=== PATIENT | male | born 1965 | race Caucasian/White ===

== ENCOUNTER 2016-10-09 08:51 | Inpatient (IN) | payer MEDICARE ==
[~2016-10-09] VITALS: Ht 182.9 cm; Wt 58.4 kg
[~2016-10-09 08:51] MED LIST: BACL-19 PO; BACL20TA PO; BUPR1FIL3 PO; BUTA1CAP30 PO; DIAZ10TA PO; OXYC5TAB3 PO; SULF1TAB24 PO
[2016-10-09] MEDS ORDERED: SODIUM CHLORIDE FLUSH 10ML SYR IVF ONE (09:30)
[2016-10-09] MEDS ORDERED: SODIUM CHLORIDE 0.9% 1,000ML IVBOLUS ONE (09:30)
[2016-10-09 09:58] LABS: HEMOGLOBIN 15.5 g/dL (13.7-18.0)
[2016-10-09 10:36] LABS: ASPARTATE AMINO TRANSFERASE 30 U/L (15-37); BLOOD UREA NITROGEN 20 mg/dL (7-18)
[2016-10-09 10:44] LABS: DIFF TOTAL CELLS COUNTED 100 CELL DIFF
[2016-10-09 10:45] LABS: VERIFY COUNTS? YES
[2016-10-09 10:46] LABS: ANISOCYTOSIS 1+; OVALOCYTES 1+
[2016-10-09] MEDS ORDERED: VANCOMYCIN PER PHARMACY MC PRN ×2 (11:00→12:00)
[2016-10-09] MEDS ORDERED: PIPERACILLIN/TAZO/PMX 3.375GM 50 ML IV ONE (11:00)
[2016-10-09] MEDS ORDERED: SODIUM CHLORIDE 0.9% 1,000 ML IV ONE (11:09)
[2016-10-09] MEDS ORDERED: VANCOMYCIN 1,100 MG in SODIUM CHLORIDE 0.9% 250 ML IV ONE (11:30)
[2016-10-09] MEDS ORDERED: BUTALBITAL PO PRN (11:30)
[2016-10-09] MEDS ORDERED: SODIUM CHLORIDE FLUSH 10ML SYR IVF PRN (11:30)
[2016-10-09] MEDS ORDERED: ASPIRIN PO PRN (11:30)
[2016-10-09] MEDS ORDERED: CAFFEINE PO PRN (11:30)
[2016-10-09] MEDS ORDERED: PIPERACILLIN/TAZO/PMX 3.375GM 50 ML ONE (11:53)
[2016-10-09] MEDS ORDERED: PIPERACILLIN/TAZO/PMX 3.375GM 50 ML IV SCH (12:00)
[2016-10-09] MEDS ORDERED: ACETAMINOPHEN 325 MG TABLET PO PRN (12:00)
[2016-10-09 12:15] VITALS: BP 144/88
[2016-10-09 13:35] LABS: C-REACTIVE PROTEIN, QUANT > 19.00 mg/dL (0.02-0.49)
[2016-10-09] MEDS: OXYcodone IR 5MG TABLET PO PRN ×3 (13:41→21:58)
[2016-10-09] MEDS: NS + 20MEQ KCL 1,000 ML IV SCH ×2 (13:41→18:40)
[2016-10-09] MEDS: ENOXAPARIN 40 MG/0.4 ML SQ SCH (13:41)
[2016-10-09] MEDS ORDERED: BACLOFEN 10 MG TABLET PO SCH (14:00)
[2016-10-09] MEDS: BACLOFEN 10 MG TABLET PO SCH ×3 (14:00→20:59)
[2016-10-09 16:09] LABS: DAU SCREEN DISCLAIMER
[2016-10-09 18:37] VITALS: BP 133/85
[2016-10-09] MEDS: AMPICILLIN/SULBACTAM 3 GM in SODIUM CHLORIDE 0.9% 100 ML IV SCH ×2 (19:30→22:15)
[2016-10-09 20:08] LABS: BLOOD UREA NITROGEN 23 mg/dL (7-18)
[2016-10-09] MEDS ORDERED: DIAZEPAM 5 MG TABLET ONE (20:33)
[2016-10-09] MEDS: DIAZEPAM 10 MG TABLET PO SCH (21:00)
[2016-10-10 01:42] VITALS: BP 109/75
[2016-10-10] MEDS: OXYcodone IR 5MG TABLET PO PRN ×4 (02:18→18:10)
[2016-10-10] MEDS: AMPICILLIN/SULBACTAM 3 GM in SODIUM CHLORIDE 0.9% 100 ML IV SCH ×4 (04:00→23:56)
[2016-10-10] MEDS: BUTALB/APAP/CAFFEINE 50MG/325MG/40MG PO PRN ×2 (04:03→09:31)
[2016-10-10 05:32] LABS: HEMOGLOBIN 12.9 g/dL (13.7-18.0)
[2016-10-10 05:38] LABS: BLOOD UREA NITROGEN 18 mg/dL (7-18)
[2016-10-10 05:43] LABS: ASPARTATE AMINO TRANSFERASE 23 U/L (15-37)
[2016-10-10] MEDS: NS + 20MEQ KCL 1,000 ML IV SCH ×3 (06:06→23:56)
[2016-10-10] MEDS: BACLOFEN 10 MG TABLET PO SCH ×5 (06:12→20:44)
[2016-10-10 06:50] VITALS: BP 94/67
[2016-10-10] MEDS ORDERED: VANCOMYCIN PMX 1GM/200ML 200 ML IV ONE (08:00)
[2016-10-10] MEDS ORDERED: VANCOMYCIN PER PHARMACY MC PRN (08:00)
[2016-10-10] MEDS ORDERED: DIAZEPAM 5 MG TABLET ONE ×2 (08:43→20:33)
[2016-10-10] MEDS: DIAZEPAM 10 MG TABLET PO SCH ×2 (09:00→20:45)
[2016-10-10] MEDS: LORATADINE 10 MG TABLET PO SCH (09:00)
[2016-10-10] MEDS: ENOXAPARIN 40 MG/0.4 ML SQ SCH (11:09)
[2016-10-10] MEDS ORDERED: PHARMACOKINETIC CONSULTATION MC ONE (11:30)
[2016-10-10] MEDS ORDERED: PHARMACOKINETIC MONITORING MC PRN (11:30)
[2016-10-10 12:25] VITALS: BP 102/66
[2016-10-10] MEDS: NICOTINE 21 MG/24 HR PATCH.TD24 TD SCH (13:39)
[2016-10-10] MEDS: METHADONE 5 MG TABLET PO SCH ×3 (13:40→21:00)
[2016-10-10 18:30] VITALS: BP 109/74
[2016-10-10] MEDS: VANCOMYCIN PMX 1GM/200ML 200 ML IV SCH (20:48)
[2016-10-11] MEDS: OXYcodone IR 5MG TABLET PO PRN ×4 (00:42→17:02)
[2016-10-11 01:06] VITALS: BP 94/60
[2016-10-11] MEDS: BUTALB/APAP/CAFFEINE 50MG/325MG/40MG PO PRN ×2 (02:42→17:02)
[2016-10-11 05:16] LABS: HEMOGLOBIN 11.7 g/dL (13.7-18.0)
[2016-10-11 05:22] LABS: BLOOD UREA NITROGEN 16 mg/dL (7-18)
[2016-10-11] MEDS: BACLOFEN 10 MG TABLET PO SCH ×5 (06:15→20:24)
[2016-10-11] MEDS: AMPICILLIN/SULBACTAM 3 GM in SODIUM CHLORIDE 0.9% 100 ML IV SCH ×4 (06:15→23:55)
[2016-10-11 07:25] VITALS: BP 100/71
[2016-10-11] MEDS: NS + 20MEQ KCL 1,000 ML IV SCH ×2 (09:20→20:22)
[2016-10-11] MEDS: VANCOMYCIN PMX 1GM/200ML 200 ML IV SCH ×2 (09:20→20:23)
[2016-10-11] MEDS: LORATADINE 10 MG TABLET PO SCH (09:20)
[2016-10-11] MEDS: METHADONE 5 MG TABLET PO SCH ×3 (09:21→20:26)
[2016-10-11] MEDS: DIAZEPAM 10 MG TABLET PO SCH ×2 (09:21→20:25)
[2016-10-11] MEDS: NICOTINE 21 MG/24 HR PATCH.TD24 TD SCH (09:22)
[2016-10-11] MEDS: ENOXAPARIN 40 MG/0.4 ML SQ SCH (12:44)
[2016-10-11 14:03] VITALS: BP 116/78
[2016-10-11 20:08] VITALS: BP 145/86
[2016-10-12 01:12] VITALS: BP 117/73
[2016-10-12] MEDS: OXYcodone IR 5MG TABLET PO PRN ×4 (01:51→18:32)
[2016-10-12] MEDS: BUTALB/APAP/CAFFEINE 50MG/325MG/40MG PO PRN ×2 (03:18→10:43)
[2016-10-12] MEDS: NS + 20MEQ KCL 1,000 ML IV SCH ×3 (06:00→20:06)
[2016-10-12] MEDS: AMPICILLIN/SULBACTAM 3 GM in SODIUM CHLORIDE 0.9% 100 ML IV SCH ×3 (06:00→18:00)
[2016-10-12] MEDS: BACLOFEN 10 MG TABLET PO SCH ×4 (06:01→18:00)
[2016-10-12 08:03] VITALS: BP 132/86
[2016-10-12] MEDS ORDERED: DIAZEPAM 5 MG TABLET ONE (08:27)
[2016-10-12] MEDS: METHADONE 5 MG TABLET PO SCH ×3 (08:38→21:14)
[2016-10-12] MEDS: NICOTINE 21 MG/24 HR PATCH.TD24 TD SCH (08:38)
[2016-10-12] MEDS: LORATADINE 10 MG TABLET PO SCH (08:38)
[2016-10-12] MEDS: DIAZEPAM 10 MG TABLET PO SCH ×2 (08:39→21:14)
[2016-10-12] MEDS: ENOXAPARIN 40 MG/0.4 ML SQ SCH (12:00)
[2016-10-12 14:00] VITALS: BP 139/86
[2016-10-12] MEDS ORDERED: VANCOMYCIN 1,200 MG in SODIUM CHLORIDE 0.9% 250 ML IV SCH (17:00)
[2016-10-12 18:58] VITALS: BP 131/84
[2016-10-13] MEDS: AMPICILLIN/SULBACTAM 3 GM in SODIUM CHLORIDE 0.9% 100 ML IV SCH ×2 (00:49→06:41)
[2016-10-13 02:26] VITALS: BP 138/90
[2016-10-13] MEDS: OXYcodone IR 5MG TABLET PO PRN ×5 (02:47→21:02)
[2016-10-13] MEDS: NS + 20MEQ KCL 1,000 ML IV SCH ×4 (04:16→22:25)
[2016-10-13 05:18] LABS: HEMOGLOBIN 12.6 g/dL (13.7-18.0)
[2016-10-13 05:25] LABS: BLOOD UREA NITROGEN 7 mg/dL (7-18)
[2016-10-13] MEDS: BACLOFEN 10 MG TABLET PO SCH ×4 (06:41→20:47)
[2016-10-13] MEDS: DIAZEPAM 10 MG TABLET PO SCH ×2 (09:00→20:47)
[2016-10-13 09:02] VITALS: BP 153/93
[2016-10-13] MEDS ORDERED: DIAZEPAM 5 MG TABLET ONE ×2 (09:17→20:25)
[2016-10-13] MEDS: METHADONE 5 MG TABLET PO SCH ×3 (09:22→20:47)
[2016-10-13] MEDS: LORATADINE 10 MG TABLET PO SCH (09:22)
[2016-10-13] MEDS: NICOTINE 21 MG/24 HR PATCH.TD24 TD SCH (09:23)
[2016-10-13] MEDS: CEFTAROLINE 600 MG in SODIUM CHLORIDE 0.9% 100 ML IV SCH ×2 (09:52→20:53)
[2016-10-13] MEDS: ENOXAPARIN 40 MG/0.4 ML SQ SCH (11:23)
[2016-10-13 14:42] VITALS: BP 131/83
[2016-10-13 20:07] VITALS: BP 150/98
[2016-10-13] MEDS: BUTALB/APAP/CAFFEINE 50MG/325MG/40MG PO PRN (22:41)
[2016-10-14 01:18] VITALS: BP 133/87
[2016-10-14] MEDS: OXYcodone IR 5MG TABLET PO PRN ×6 (01:57→22:53)
[2016-10-14] MEDS: BUTALB/APAP/CAFFEINE 50MG/325MG/40MG PO PRN ×5 (03:05→22:53)
[2016-10-14] MEDS: NS + 20MEQ KCL 1,000 ML IV SCH ×3 (05:02→23:20)
[2016-10-14 05:26] LABS: HEMOGLOBIN 12.8 g/dL (13.7-18.0)
[2016-10-14 05:36] LABS: BLOOD UREA NITROGEN 6 mg/dL (7-18)
[2016-10-14 05:40] LABS: ASPARTATE AMINO TRANSFERASE 30 U/L (15-37)
[2016-10-14] MEDS: BACLOFEN 10 MG TABLET PO SCH ×4 (06:05→21:09)
[2016-10-14] MEDS ORDERED: DIAZEPAM 5 MG TABLET ONE ×3 (07:59→21:01)
[2016-10-14 08:05] VITALS: BP 150/90
[2016-10-14] MEDS: METHADONE 5 MG TABLET PO SCH ×3 (08:51→21:09)
[2016-10-14] MEDS: DIAZEPAM 10 MG TABLET PO SCH ×2 (08:52→21:00)
[2016-10-14] MEDS: LORATADINE 10 MG TABLET PO SCH (08:53)
[2016-10-14] MEDS: NICOTINE 21 MG/24 HR PATCH.TD24 TD SCH (08:53)
[2016-10-14] MEDS: CEFTAROLINE 600 MG in SODIUM CHLORIDE 0.9% 100 ML IV SCH (10:50)
[2016-10-14 13:56] VITALS: BP 115/88
[2016-10-14] MEDS ORDERED: DOXYCYCLINE 100MG TABLET PO ONE (16:30)
[2016-10-14 19:13] VITALS: BP 139/89
[2016-10-14] MEDS: ENOXAPARIN 40 MG/0.4 ML SQ SCH (21:09)
[2016-10-14] MEDS: AMOXICILLIN/CLAV 875-125MG TABLET PO SCH (21:09)
[2016-10-15 02:36] VITALS: BP 133/89
[2016-10-15] MEDS: OXYcodone IR 5MG TABLET PO PRN ×3 (02:42→13:37)
[2016-10-15] MEDS: BUTALB/APAP/CAFFEINE 50MG/325MG/40MG PO PRN ×3 (02:42→13:37)
[2016-10-15] MEDS: BACLOFEN 10 MG TABLET PO SCH (05:41)
[2016-10-15] MEDS: NS + 20MEQ KCL 1,000 ML IV SCH (05:46)
[2016-10-15 06:15] LABS: HEMOGLOBIN 13.9 g/dL (13.7-18.0)
[2016-10-15 06:27] LABS: ASPARTATE AMINO TRANSFERASE 32 U/L (15-37); BLOOD UREA NITROGEN 10 mg/dL (7-18)
[2016-10-15 07:30] VITALS: BP 141/90
[2016-10-15] MEDS ORDERED: DIAZEPAM 5 MG TABLET ONE (07:38)
[2016-10-15] MEDS: NICOTINE 21 MG/24 HR PATCH.TD24 TD SCH (09:00)
[2016-10-15] MEDS: LORATADINE 10 MG TABLET PO SCH (09:52)
[2016-10-15] MEDS: AMOXICILLIN/CLAV 875-125MG TABLET PO SCH (09:53)
[2016-10-15] MEDS: METHADONE 5 MG TABLET PO SCH (09:53)
[2016-10-15] MEDS: DIAZEPAM 10 MG TABLET PO SCH (09:54)
[2016-10-15] MEDS ORDERED: AMOX1TAB12 PO (14:29)
[2016-10-15] MEDS ORDERED: DOXY100T PO (14:29)
== END 2016-10-15 15:13 | disposition hospice, home (50) | DRG 871 ==
LOC: ED 10:15 → EDIP 11:09 → 4WST 12:02
PROVIDERS: ADMIT Internal Medicine; ATTEND Internal Medicine
PROC: 0T9B70Z Drainage of Bladder with Drainage Device, Via Natural or Artificial Opening (ICD-10-PCS; principal; 2016-10-09)
DX: A41.9 Sepsis, unspecified organism (principal); E43 Unspecified severe protein-calorie malnutrition; G93.41 Metabolic encephalopathy; L03.116 Cellulitis of left lower limb; E87.1 Hypo-osmolality and hyponatremia; F11.20 Opioid dependence, uncomplicated; Z68.1 Body mass index [BMI] 19.9 or less, adult; C41.9 Malignant neoplasm of bone and articular cartilage, unspecified; B95.8 Unspecified staphylococcus as the cause of diseases classified elsewhere; E86.0 Dehydration; E87.6 Hypokalemia; Z86.19 Personal history of other infectious and parasitic diseases; G89.29 Other chronic pain; E55.9 Vitamin D deficiency, unspecified; Z85.830 Personal history of malignant neoplasm of bone; Z85.118 Personal history of other malignant neoplasm of bronchus and lung; I87.8 Other specified disorders of veins
CPT/HCPCS: 36415; 80048; 80053; 80202; 80307; 81001; 82607; 83605; 83735; 84100; 84145; 84443; 85025; 85651; 86140; 87040; 87070; 87081; 87205; 93005; 99285; J0295; J0712; J1650; J2543; J3370; J3480; J7030; J7050

== ENCOUNTER 2016-12-13 14:49 | Emergency (ER) | payer MEDICARE ==
[~2016-12-13] VITALS: Ht 188 cm; Wt 66.0 kg
[~2016-12-13 14:49] MED LIST changes: +AMOX1TAB12 PO; +DOXY100T PO
[2016-12-13 14:52] VITALS: BP 104/67
[2016-12-13] MEDS ORDERED: CLINDAMYCIN 300 MG CAPSULE PO ONE (15:30)
[2016-12-13 15:37] LABS: BLOOD UREA NITROGEN 19 mg/dL (7-18)
== END 2016-12-13 16:22 | disposition home or self-care (01) ==
LOC: ED 16:11
DX: L03.011 Cellulitis of right finger (principal); L03.114 Cellulitis of left upper limb; Z85.118 Personal history of other malignant neoplasm of bronchus and lung
CPT/HCPCS: 36415; 80048; 82040; 85025; 99284

== ENCOUNTER 2017-04-20 13:09 | Emergency (ER) | payer MEDICARE ==
[~2017-04-20] VITALS: Ht 188 cm; Wt 70.0 kg
[2017-04-20 13:20] VITALS: BP 138/90
[2017-04-20] MEDS ORDERED: LIDOCAINE 1%, 20ML ONE (14:15)
[2017-04-20] MEDS ORDERED: LIDOCAINE 1%, 20ML SQ ONE (14:30)
[2017-04-20] MEDS ORDERED: DIPH,PERTUSS(ACELL),TET VAC/PF 0.5 ML IM-VACC ONE ×2 (15:00→15:01)
== END 2017-04-20 15:40 | disposition home or self-care (01) ==
LOC: ED 14:07
DX: L02.415 Cutaneous abscess of right lower limb (principal); Z98.890 Other specified postprocedural states
CPT/HCPCS: 10060; 90471; 90715; 99283; J3490

== ENCOUNTER 2017-05-11 12:38 | Emergency (ER) | payer MEDICARE ==
[~2017-05-11] VITALS: Ht 188 cm; Wt 75.0 kg
[2017-05-11 12:41] VITALS: BP 145/94
== END 2017-05-11 13:42 | disposition home or self-care (01) ==
LOC: ED 13:36
DX: L02.31 Cutaneous abscess of buttock (principal); Z85.118 Personal history of other malignant neoplasm of bronchus and lung; Z87.891 Personal history of nicotine dependence
CPT/HCPCS: 99281

== ENCOUNTER 2017-05-29 14:17 | Inpatient (IN) | payer MEDICARE ==
[~2017-05-29] VITALS: Ht 188 cm; Wt 58.7 kg
[2017-05-29 15:23] LABS: HEMOGLOBIN 15.9 g/dL (13.7-18.0); WHITE BLOOD COUNT 10.8 x10^3/uL (3.4-10)
[2017-05-29 15:35] LABS: ASPARTATE AMINO TRANSFERASE 10 U/L (15-37); BLOOD UREA NITROGEN 18 mg/dL (7-18)
[2017-05-29] MEDS ORDERED: VANCOMYCIN 1,300 MG in SODIUM CHLORIDE 0.9% 250 ML IV ONE (16:00)
[2017-05-29] MEDS ORDERED: VANCOMYCIN PER PHARMACY MC ONE (16:00)
[2017-05-29] MEDS ORDERED: CEFAZOLIN PMX 1GM/50ML 50 ML IV ONE (16:30)
[2017-05-29] MEDS ORDERED: ACETAMINOPHEN 325 MG TABLET PO PRN (19:00)
[2017-05-29] MEDS ORDERED: BISACODYL 10 MG SUPP PR PRN (19:00)
[2017-05-29] MEDS ORDERED: DOCUSATE 100 MG CAPSULE PO PRN (19:00)
[2017-05-29] MEDS ORDERED: ONDANSETRON 2MG/ML, 2ML IVPush PRN (19:00)
[2017-05-29 19:45] VITALS: BP 147/87
[2017-05-29] MEDS: CEFAZOLIN PMX 1GM/50ML 50 ML IV SCH (19:49)
[2017-05-29] MEDS: SODIUM CHLORIDE 0.9% 1,000 ML IV SCH (19:50)
[2017-05-29] MEDS ORDERED: PHARMACOKINETIC MONITORING MC PRN (20:00)
[2017-05-29] MEDS ORDERED: PHARMACOKINETIC CONSULTATION MC ONE (20:00)
[2017-05-29] MEDS ORDERED: VANCOMYCIN PER PHARMACY MC PRN (20:00)
[2017-05-29] MEDS ORDERED: DIAZEPAM 5 MG TABLET ONE (21:57)
[2017-05-29] MEDS: NICOTINE 21 MG/24 HR PATCH.TD24 TD SCH (22:11)
[2017-05-29] MEDS: DIAZEPAM 10 MG TABLET PO SCH (22:12)
[2017-05-29] MEDS: ENOXAPARIN 40 MG/0.4 ML SQ SCH (22:13)
[2017-05-29] MEDS ORDERED: SODIUM CHLORIDE NASAL SPRAY 45ML BOTTLE NAS PRN (22:30)
[2017-05-30 02:54] VITALS: BP 176/92
[2017-05-30] MEDS: SODIUM CHLORIDE 0.9% 1,000 ML IV SCH (03:20)
[2017-05-30 03:25] VITALS: BP 160/94
[2017-05-30] MEDS: VANCOMYCIN 1,300 MG in SODIUM CHLORIDE 0.9% 250 ML IV SCH ×2 (04:47→16:40)
[2017-05-30 05:49] LABS: HEMATOCRIT 43.5 % (39.2-51.8); HEMOGLOBIN 14.9 g/dL (13.7-18.0); WHITE BLOOD COUNT 9.3 x10^3/uL (3.4-10)
[2017-05-30 06:19] LABS: ASPARTATE AMINO TRANSFERASE 11 U/L (15-37); BLOOD UREA NITROGEN 17 mg/dL (7-18)
[2017-05-30 07:54] VITALS: BP 157/99
[2017-05-30] MEDS ORDERED: DIAZEPAM 5 MG TABLET ONE (08:00)
[2017-05-30] MEDS: BUPRENORPHINE/NALOXONE 8-2MG SL SCH (08:06)
[2017-05-30] MEDS: DIAZEPAM 10 MG TABLET PO SCH (08:07)
[2017-05-30] MEDS: CEFAZOLIN PMX 1GM/50ML 50 ML IV SCH ×2 (08:08→19:31)
[2017-05-30] MEDS ORDERED: BACLOFEN 10 MG TABLET PO PRN (13:00)
[2017-05-30] MEDS: BACLOFEN 10 MG TABLET PO PRN ×2 (13:36→19:31)
[2017-05-30] MEDS: BUTALB/APAP/CAFFEINE 50MG/325MG/40MG PO PRN ×2 (13:36→19:31)
[2017-05-30 14:36] VITALS: BP 150/93
[2017-05-30] MEDS: NICOTINE 21 MG/24 HR PATCH.TD24 TD SCH (16:38)
[2017-05-30 20:00] VITALS: BP 122/80
[2017-05-30] MEDS: ENOXAPARIN 40 MG/0.4 ML SQ SCH (21:31)
[2017-05-30] MEDS: POLYETHYLENE GLYCOL 17 GM PACKET PO PRN (21:31)
[2017-05-31 02:00] VITALS: BP 145/91
[2017-05-31] MEDS: BACLOFEN 10 MG TABLET PO PRN ×2 (02:28→09:59)
[2017-05-31] MEDS: VANCOMYCIN 1,300 MG in SODIUM CHLORIDE 0.9% 250 ML IV SCH ×2 (04:57→17:22)
[2017-05-31 07:20] VITALS: BP 151/97
[2017-05-31] MEDS: CEFAZOLIN PMX 1GM/50ML 50 ML IV SCH ×2 (07:47→20:52)
[2017-05-31] MEDS: BUPRENORPHINE/NALOXONE 8-2MG SL SCH ×2 (07:47→20:52)
[2017-05-31] MEDS: BUTALB/APAP/CAFFEINE 50MG/325MG/40MG PO PRN ×2 (09:59→17:33)
[2017-05-31 16:35] VITALS: BP 138/98
[2017-05-31] MEDS: NICOTINE 21 MG/24 HR PATCH.TD24 TD SCH (17:23)
[2017-05-31 19:03] VITALS: BP 135/78
[2017-05-31] MEDS: ENOXAPARIN 40 MG/0.4 ML SQ SCH (20:52)
[2017-05-31] MEDS: DIAZEPAM 10 MG TABLET PO PRN (21:06)
[2017-06-01] MEDS: BUTALB/APAP/CAFFEINE 50MG/325MG/40MG PO PRN ×4 (00:28→18:11)
[2017-06-01 01:41] VITALS: BP 122/83
[2017-06-01] MEDS: VANCOMYCIN 1,300 MG in SODIUM CHLORIDE 0.9% 250 ML IV SCH ×2 (04:54→16:30)
[2017-06-01 07:42] VITALS: BP 142/90
[2017-06-01] MEDS: BUPRENORPHINE/NALOXONE 8-2MG SL SCH ×2 (07:57→20:43)
[2017-06-01] MEDS: CEFAZOLIN PMX 1GM/50ML 50 ML IV SCH ×2 (08:00→20:40)
[2017-06-01] MEDS: POLYETHYLENE GLYCOL 17 GM PACKET PO PRN (08:00)
[2017-06-01] MEDS ORDERED: MAGNESIUM CITRATE 300ML ORAL SOL ONE (12:45)
[2017-06-01] MEDS: BACLOFEN 10 MG TABLET PO PRN ×2 (13:30→20:47)
[2017-06-01 14:00] VITALS: BP 107/66
[2017-06-01] MEDS: NICOTINE 21 MG/24 HR PATCH.TD24 TD SCH (18:11)
[2017-06-01 20:00] VITALS: BP 155/63
[2017-06-01 20:18] VITALS: BP_SYST 114; BP_SYST 193; BP_DIAS 70; BP_DIAS 74
[2017-06-01] MEDS: ENOXAPARIN 40 MG/0.4 ML SQ SCH (20:43)
[2017-06-02] MEDS: BUTALB/APAP/CAFFEINE 50MG/325MG/40MG PO PRN ×3 (00:11→13:13)
[2017-06-02] MEDS ORDERED: DIAZEPAM 5 MG TABLET ONE (00:21)
[2017-06-02] MEDS: DIAZEPAM 10 MG TABLET PO PRN (00:22)
[2017-06-02 02:17] VITALS: BP 94/70
[2017-06-02] MEDS: VANCOMYCIN 1,300 MG in SODIUM CHLORIDE 0.9% 250 ML IV SCH (04:15)
[2017-06-02 07:49] VITALS: BP 121/82
[2017-06-02] MEDS: CEFAZOLIN PMX 1GM/50ML 50 ML IV SCH (08:08)
[2017-06-02] MEDS: BUPRENORPHINE/NALOXONE 8-2MG SL SCH (08:09)
[2017-06-02] MEDS ORDERED: DOXY100C15 PO (11:16)
== END 2017-06-02 14:42 | disposition home or self-care (01) | DRG 602 ==
LOC: ED 16:29 → EDIP 16:38 → 4NOR 17:36
PROVIDERS: ADMIT Hospitalist; ATTEND Hospitalist
DX: L03.116 Cellulitis of left lower limb (principal); E43 Unspecified severe protein-calorie malnutrition; Z68.1 Body mass index [BMI] 19.9 or less, adult; F11.20 Opioid dependence, uncomplicated; D75.89 Other specified diseases of blood and blood-forming organs; G89.4 Chronic pain syndrome; F17.200 Nicotine dependence, unspecified, uncomplicated; I87.2 Venous insufficiency (chronic) (peripheral); Z85.118 Personal history of other malignant neoplasm of bronchus and lung; Z85.830 Personal history of malignant neoplasm of bone; Z86.19 Personal history of other infectious and parasitic diseases; Z89.519 Acquired absence of unspecified leg below knee; B95.62 Methicillin resistant Staphylococcus aureus infection as the cause of diseases classified elsewhere
CPT/HCPCS: 36415; 80053; 80061; 80202; 81003; 83605; 83735; 84100; 84443; 85025; 85610; 85730; 87040; 87070; 87077; 87147; 87186; 87205; 99285; J0690; J1650; J3370; J7030; J7050

== ENCOUNTER 2017-07-21 20:09 | Inpatient (IN) | payer MEDICARE ==
[~2017-07-21] VITALS: Ht 188 cm; Wt 53.3 kg
[~2017-07-21 20:09] MED LIST changes: +DOXY100C15 PO
[2017-07-21] MEDS ORDERED: SODIUM CHLORIDE FLUSH 10ML SYR IVF ONE (20:30)
[2017-07-21 20:42] LABS: MEAN CORPUSCULAR HEMOGLOBIN 33.7 pg (27.5-34.5); MEAN CORPUSCULAR HGB CONC 35.2 g/dL (33.2-36.2); MEAN CORPUSCULAR VOLUME 95.7 fL (81-97); PLATELET COUNT 148 x10^3/uL (130-400); RED BLOOD COUNT 4.63 x10^6/uL (4.38-5.82)
[2017-07-21 20:54] LABS: ANION GAP 8 mmol/L (5-15); CALCIUM 9.1 mg/dL (8.5-10.1); CHLORIDE 101 mmol/L (98-107)
[2017-07-21 20:59] LABS: MD YES
[2017-07-21 21:03] LABS: <RBC MORPHOLOGY> NORMAL; BAND#(MANUAL) 2.43 x10^3/uL; BANDS%(MANUAL) 15 % (0-7); LYMPHS% (MANUAL) 8 % (22-44); MONOS% (MANUAL) 8 % (2-9); SEG#(MANUAL) 11.18 x10^3/uL (1.8-6.8); SEGS% (MANUAL) 69 % (42-75)
[2017-07-21 21:05] LABS: LARGE PLATELETS 1+
[2017-07-21 21:07] LABS: <PLATELET ESTIMATE> ADEQUATE
[2017-07-21] MEDS ORDERED: SODIUM CHLORIDE 0.9% 1,000ML IVBOLUS ONE (21:30)
[2017-07-21] MEDS ORDERED: VANCOMYCIN 1,400 MG in SODIUM CHLORIDE 0.9% 250 ML IV ONE (21:30)
[2017-07-21] MEDS ORDERED: VANCOMYCIN PER PHARMACY MC ONE (21:30)
[2017-07-21] MEDS ORDERED: CEFTRIAXONE PMX 1GM/50ML 50 ML IVPB ONE (21:30)
[2017-07-21] MEDS ORDERED: CEFTRIAXONE PMX 1GM/50ML 50 ML ONE (21:51)
[2017-07-21] MEDS ORDERED: SODIUM CHLORIDE 0.9% 1,000 ML IV ONE (22:22)
[2017-07-21] MEDS ORDERED: ONDANSETRON 2MG/ML, 2ML IVPush PRN (22:30)
[2017-07-22 00:36] VITALS: BP 139/83
[2017-07-22] MEDS ORDERED: ONDANSETRON ODT 4 MG PO PRN (01:00)
[2017-07-22] MEDS ORDERED: ENALAPRILAT 1.25 MG/ML, 2ML IVPush PRN (01:00)
[2017-07-22] MEDS ORDERED: TEMAZEPAM 15 MG CAPSULE PO PRN (01:00)
[2017-07-22] MEDS ORDERED: DOCUSATE 100 MG CAPSULE PO PRN (01:00)
[2017-07-22] MEDS ORDERED: VANCOMYCIN PER PHARMACY MC PRN (01:00)
[2017-07-22] MEDS ORDERED: ACETAMINOPHEN 325 MG TABLET PO PRN (01:00)
[2017-07-22] MEDS ORDERED: PHARMACOKINETIC MONITORING MC PRN (01:30)
[2017-07-22] MEDS ORDERED: NICOTINE 21 MG/24 HR PATCH.TD24 TD ONE (01:30)
[2017-07-22 01:39] VITALS: BP 112/70
[2017-07-22 07:52] VITALS: BP 125/78
[2017-07-22] MEDS ORDERED: CEFTRIAXONE PMX 1GM/50ML 50 ML IV SCH (10:00)
[2017-07-22] MEDS: ENOXAPARIN 40 MG/0.4 ML SQ SCH (10:26)
[2017-07-22 14:01] VITALS: BP 135/83
[2017-07-22] MEDS: VANCOMYCIN PMX 1GM/200ML 200 ML IVPB SCH (15:38)
[2017-07-22] MEDS ORDERED: DIAZEPAM 5 MG TABLET PO ONE (17:00)
[2017-07-22] MEDS ORDERED: ASPIRIN PO PRN (17:00)
[2017-07-22] MEDS ORDERED: BUTALBITAL PO PRN (17:00)
[2017-07-22] MEDS ORDERED: CAFFEINE PO PRN (17:00)
[2017-07-22] MEDS: BACLOFEN 10 MG TABLET PO SCH ×2 (18:04→20:57)
[2017-07-22 18:36] VITALS: BP 129/79
[2017-07-22] MEDS: BUPRENORPHINE/NALOXONE 8-2MG SL SCH (20:57)
[2017-07-22] MEDS ORDERED: CEFTRIAXONE 1,000 MG in DEXTROSE 5% 50 ML IV SCH (22:00)
[2017-07-23 02:34] VITALS: BP 136/85
[2017-07-23] MEDS: BUTALB/APAP/CAFFEINE 50MG/325MG/40MG PO PRN ×4 (02:39→20:33)
[2017-07-23 04:53] LABS: BASOPHILS # (AUTO) 0.01 x10^3/uL (0-0.1); BASOPHILS % (AUTO) 0 % (0-1); EOSINOPHILS % (AUTO) 0 % (1-7); LYMPHOCYTES % (AUTO) 6 % (22-44); MD NO; MEAN CORPUSCULAR HEMOGLOBIN 32.9 pg (27.5-34.5); MEAN CORPUSCULAR HGB CONC 33.8 g/dL (33.2-36.2); MEAN CORPUSCULAR VOLUME 97.2 fL (81-97); MEAN PLATELET VOLUME 8.9 fL (7.4-10.4); MONOCYTES # (AUTO) 0.79 x10^3/uL (0.2-0.8); MONOCYTES % (AUTO) 6 % (2-9); NEUTROPHILS # (AUTO) 12.18 x10^3/uL (1.8-6.8); NEUTROPHILS % (AUTO) 88 % (42-75); PLATELET COUNT 110 x10^3/uL (130-400); RED BLOOD COUNT 4.04 x10^6/uL (4.38-5.82); RED CELL DISTRIBUTION WIDTH 13.8 % (9.4-14.8)
[2017-07-23 04:55] LABS: ANION GAP 10 mmol/L (5-15); CHLORIDE 98 mmol/L (98-107)
[2017-07-23] MEDS: BACLOFEN 10 MG TABLET PO SCH ×5 (05:53→19:46)
[2017-07-23 08:04] VITALS: BP 122/79
[2017-07-23] MEDS ORDERED: DIAZEPAM 5 MG TABLET PO SCH (09:00)
[2017-07-23] MEDS: ENOXAPARIN 40 MG/0.4 ML SQ SCH (09:05)
[2017-07-23] MEDS: BUPRENORPHINE/NALOXONE 8-2MG SL SCH ×2 (09:06→19:46)
[2017-07-23] MEDS: VANCOMYCIN PMX 1GM/200ML 200 ML IVPB SCH (10:54)
[2017-07-23] MEDS: POTASSIUM CHLORIDE 20 MEQ TAB.ER.PRT PO SCH ×3 (10:55→17:08)
[2017-07-23 18:44] VITALS: BP 115/69
[2017-07-23] MEDS: KETOCONAZOLE CRM 2%, 15GM TP SCH (20:33)
[2017-07-23] MEDS: DIAZEPAM 5 MG TABLET PO PRN (20:33)
[2017-07-24 00:25] VITALS: BP 105/63
[2017-07-24] MEDS: BUTALB/APAP/CAFFEINE 50MG/325MG/40MG PO PRN ×5 (01:19→22:04)
[2017-07-24] MEDS: VANCOMYCIN PMX 1GM/200ML 200 ML IVPB SCH ×2 (04:18→22:05)
[2017-07-24] MEDS: BACLOFEN 10 MG TABLET PO SCH ×5 (06:36→20:45)
[2017-07-24 08:20] VITALS: BP 146/88
[2017-07-24] MEDS: BUPRENORPHINE/NALOXONE 8-2MG SL SCH ×2 (09:26→20:46)
[2017-07-24] MEDS: ENOXAPARIN 40 MG/0.4 ML SQ SCH (09:27)
[2017-07-24] MEDS: KETOCONAZOLE CRM 2%, 15GM TP SCH (09:31)
[2017-07-24 13:22] VITALS: BP 145/89
[2017-07-24] MEDS: DIAZEPAM 5 MG TABLET PO PRN (13:35)
[2017-07-24] MEDS ORDERED: MAGNESIUM CITRATE 300ML ORAL SOL PO ONE (15:30)
[2017-07-24] MEDS ORDERED: OMNIPAQUE 350 MG/ML, 100ML BOTTLE ONE (17:15)
[2017-07-24 18:56] VITALS: BP 157/90
[2017-07-25 00:59] VITALS: BP 118/75
[2017-07-25] MEDS: BUTALB/APAP/CAFFEINE 50MG/325MG/40MG PO PRN ×5 (02:48→20:16)
[2017-07-25 06:34] LABS: ANION GAP 6 mmol/L (5-15); CALCIUM 8.7 mg/dL (8.5-10.1); CHLORIDE 101 mmol/L (98-107); CREATININE 0.87 mg/dL (0.7-1.3)
[2017-07-25] MEDS: BACLOFEN 10 MG TABLET PO SCH ×5 (06:42→19:58)
[2017-07-25 08:00] VITALS: BP 136/85
[2017-07-25] MEDS: BUPRENORPHINE/NALOXONE 8-2MG SL SCH ×2 (09:14→19:58)
[2017-07-25] MEDS: ENOXAPARIN 40 MG/0.4 ML SQ SCH (09:15)
[2017-07-25] MEDS: VANCOMYCIN PMX 1GM/200ML 200 ML IVPB SCH (16:14)
[2017-07-25] MEDS ORDERED: PIPERACILLIN/TAZO/PMX 4.5GM 100 ML IV SCH (18:00)
[2017-07-25] MEDS ORDERED: PIPERACILLIN/TAZO 4.5 GM in SODIUM CHLORIDE 0.9% 100 ML IV SCH (19:30)
[2017-07-25 19:44] VITALS: BP 113/76
[2017-07-25] MEDS: DIAZEPAM 5 MG TABLET PO PRN (20:16)
[2017-07-26] MEDS: PIPERACILLIN/TAZO 4.5 GM in SODIUM CHLORIDE 0.9% 100 ML IV SCH ×4 (00:36→18:28)
[2017-07-26] MEDS: BUTALB/APAP/CAFFEINE 50MG/325MG/40MG PO PRN ×5 (00:36→20:24)
[2017-07-26 02:58] VITALS: BP 119/81
[2017-07-26] MEDS ORDERED: PIPERACILLIN/TAZO 4.5 GM in SODIUM CHLORIDE 0.9% 100 ML IV SCH (06:00)
[2017-07-26 08:20] VITALS: BP 112/72
[2017-07-26] MEDS: BACLOFEN 10 MG TABLET PO SCH ×4 (08:31→18:28)
[2017-07-26] MEDS: BUPRENORPHINE/NALOXONE 8-2MG SL SCH ×2 (08:31→20:24)
[2017-07-26] MEDS: ENOXAPARIN 40 MG/0.4 ML SQ SCH (08:31)
[2017-07-26] MEDS: VANCOMYCIN PMX 1GM/200ML 200 ML IVPB SCH (10:59)
[2017-07-26 13:51] VITALS: BP 117/65
[2017-07-26 20:30] VITALS: BP 110/69
[2017-07-26] MEDS: DIAZEPAM 5 MG TABLET PO PRN (20:38)
[2017-07-27] MEDS: BACLOFEN 10 MG TABLET PO SCH ×4 (00:01→12:43)
[2017-07-27] MEDS: PIPERACILLIN/TAZO 4.5 GM in SODIUM CHLORIDE 0.9% 100 ML IV SCH ×3 (00:01→12:43)
[2017-07-27] MEDS: BUTALB/APAP/CAFFEINE 50MG/325MG/40MG PO PRN ×4 (00:01→12:43)
[2017-07-27 02:31] VITALS: BP 122/74
[2017-07-27] MEDS: VANCOMYCIN PMX 1GM/200ML 200 ML IVPB SCH (04:06)
[2017-07-27 05:34] LABS: BASOPHILS # (AUTO) 0.05 x10^3/uL (0-0.1); BASOPHILS % (AUTO) 1 % (0-1); EOSINOPHILS # (AUTO) 0.34 x10^3/uL (0-0.4); EOSINOPHILS % (AUTO) 3 % (1-7); LYMPHOCYTES # (AUTO) 1.28 x10^3/uL (1-3.4); LYMPHOCYTES % (AUTO) 12 % (22-44); MD NO; MEAN CORPUSCULAR HEMOGLOBIN 32.7 pg (27.5-34.5); MEAN CORPUSCULAR HGB CONC 33.6 g/dL (33.2-36.2); MEAN CORPUSCULAR VOLUME 97.3 fL (81-97); MEAN PLATELET VOLUME 8.4 fL (7.4-10.4); MONOCYTES % (AUTO) 8 % (2-9); NEUTROPHILS # (AUTO) 8.05 x10^3/uL (1.8-6.8); NEUTROPHILS % (AUTO) 77 % (42-75); PLATELET COUNT 298 x10^3/uL (130-400); RED BLOOD COUNT 3.98 x10^6/uL (4.38-5.82); RED CELL DISTRIBUTION WIDTH 14.1 % (9.4-14.8)
[2017-07-27 07:42] VITALS: BP 114/74
[2017-07-27] MEDS: BUPRENORPHINE/NALOXONE 8-2MG SL SCH (08:49)
[2017-07-27] MEDS: ENOXAPARIN 40 MG/0.4 ML SQ SCH (08:49)
[2017-07-27 14:17] VITALS: BP 115/72
[2017-07-27] MEDS ORDERED: SULF1TAB24 PO (14:59)
== END 2017-07-27 16:50 | disposition home or self-care (01) | DRG 602 ==
LOC: ED 21:44 → EDIP 22:22 → 3NW 23:39
PROVIDERS: ADMIT Hospitalist; ATTEND Family Medicine
DX: L03.116 Cellulitis of left lower limb (principal); E43 Unspecified severe protein-calorie malnutrition; C41.9 Malignant neoplasm of bone and articular cartilage, unspecified; F11.20 Opioid dependence, uncomplicated; Z68.1 Body mass index [BMI] 19.9 or less, adult; I87.2 Venous insufficiency (chronic) (peripheral); D72.825 Bandemia; M62.838 Other muscle spasm; Z96.89 Presence of other specified functional implants; F17.200 Nicotine dependence, unspecified, uncomplicated; G89.29 Other chronic pain; K59.00 Constipation, unspecified; Z85.830 Personal history of malignant neoplasm of bone; Z86.14 Personal history of Methicillin resistant Staphylococcus aureus infection; Z89.611 Acquired absence of right leg above knee
CPT/HCPCS: 36415; 80048; 80202; 82040; 83605; 83735; 84145; 85025; 87040; 93922; 96365; 96368; J0696; J1650; J2543; J3370; Q9967; J7030; J7050

== ENCOUNTER 2017-10-15 17:43 | Inpatient (IN) | payer MEDICARE ==
[~2017-10-15] VITALS: Ht 190.5 cm; Wt 63.2 kg
[2017-10-15] MEDS ORDERED: NALOXONE 0.4 MG/ML, 1ML ONE (17:47)
[2017-10-15] MEDS ORDERED: SODIUM CHLORIDE FLUSH 10ML SYR IVF ONE (18:00)
[2017-10-15 18:27] LABS: BASOPHILS # (AUTO) 0.01 x10^3/uL (0-0.1); BASOPHILS % (AUTO) 0 % (0-1); EOSINOPHILS # (AUTO) 0.57 x10^3/uL (0-0.4); EOSINOPHILS % (AUTO) 6 % (1-7); LYMPHOCYTES # (AUTO) 1.75 x10^3/uL (1-3.4); LYMPHOCYTES % (AUTO) 18 % (22-44); MD NO; MEAN CORPUSCULAR HEMOGLOBIN 30.5 pg (27.5-34.5); MEAN CORPUSCULAR HGB CONC 32.7 g/dL (33.2-36.2); MEAN CORPUSCULAR VOLUME 93.2 fL (81-97); MEAN PLATELET VOLUME 8.8 fL (7.4-10.4); MONOCYTES # (AUTO) 0.64 x10^3/uL (0.2-0.8); MONOCYTES % (AUTO) 7 % (2-9); NEUTROPHILS # (AUTO) 6.59 x10^3/uL (1.8-6.8); NEUTROPHILS % (AUTO) 69 % (42-75); PLATELET COUNT 268 x10^3/uL (130-400); RED CELL DISTRIBUTION WIDTH 14.3 % (9.4-14.8)
[2017-10-15] MEDS ORDERED: PLEASE ENTER HEIGHT AND WEIGHT MC SCH (18:30)
[2017-10-15 18:33] LABS: ALANINE AMINOTRANSFERASE 63 U/L (12-78); ALBUMIN 3.4 g/dL (3.4-5.0); ANION GAP 8 mmol/L (5-15); CALCIUM 8.6 mg/dL (8.5-10.1); CHLORIDE 107 mmol/L (98-107); CREATININE 0.64 mg/dL (0.7-1.3); SALICYLATE LEVEL 10.1 mg/dL (2.8-20.0)
[2017-10-15 18:35] LABS: ALKALINE PHOSPHATASE 129 U/L (45-117); BILIRUBIN,TOTAL 0.3 mg/dL (0.2-1.0); TOTAL PROTEIN 7.4 g/dL (6.4-8.2)
[2017-10-15 18:43] LABS: ACETAMINOPHEN < 2 mcg/mL (10-30)
[2017-10-15] MEDS ORDERED: NALOXONE 1 MG/ML, 2ML IVPush ONE (19:00)
[2017-10-15 19:13] LABS: AMPHETAMINE SCREEN, URINE Negative (Negative); BARBITURATE SCREEN, URINE Positive (Negative); BENZODIAZEPINE SCREEN, URINE Positive (Negative); CANNABINOID SCREEN, URINE Positive (Negative); COCAINE SCREEN, URINE Negative (Negative); METHADONE SCREEN, URINE Negative (Negative); OPIATE SCREEN, URINE Positive (Negative)
[2017-10-15] MEDS ORDERED: VALP250C59 PO (19:18)
[2017-10-15] MEDS ORDERED: DOXY100C15 PO (19:18)
[2017-10-15] MEDS ORDERED: GABA300C10 PO (19:18)
[2017-10-15] MEDS ORDERED: QUET100T4 PO (19:18)
[2017-10-15 19:20] LABS: MICROSCOPIC INDICATED
[2017-10-15 19:28] LABS: CULTURE INDICATED? NO
[2017-10-15] MEDS ORDERED: D5%-0.9% NACL 1,000 ML IV SCH (20:30)
[2017-10-15] MEDS ORDERED: DOXYCYCLINE 100 MG in DEXTROSE 5% 250 ML IV SCH (20:30)
[2017-10-15] MEDS ORDERED: ONDANSETRON 2MG/ML, 2ML IVPush PRN (20:30)
[2017-10-15] MEDS ORDERED: SODIUM CHLORIDE FLUSH 10ML SYR IVF PRN (20:30)
[2017-10-15] MEDS ORDERED: ENOXAPARIN 40 MG/0.4 ML SQ SCH (20:30)
[2017-10-15] MEDS ORDERED: ACETAMINOPHEN 325 MG TABLET PO PRN (20:30)
[2017-10-15 21:49] VITALS: BP 131/80
[2017-10-16 00:16] VITALS: BP 131/80
[2017-10-16 01:31] VITALS: BP 131/84
== END 2017-10-16 03:38 | disposition left against medical advice (07) | DRG 917 ==
LOC: ED 19:00 → EDIP 20:02 → SUATTDRO 20:16 → 4WST 21:10
PROVIDERS: ADMIT Hospitalist; ATTEND Hospitalist
PROC: 0T9B70Z Drainage of Bladder with Drainage Device, Via Natural or Artificial Opening (ICD-10-PCS; principal; 2017-10-15)
DX: T40.2X1A Poisoning by other opioids, accidental (unintentional), initial encounter (principal); G92 Toxic encephalopathy; L03.116 Cellulitis of left lower limb; Z89.611 Acquired absence of right leg above knee; G89.4 Chronic pain syndrome; I87.2 Venous insufficiency (chronic) (peripheral); F17.200 Nicotine dependence, unspecified, uncomplicated; Z85.118 Personal history of other malignant neoplasm of bronchus and lung; Z85.830 Personal history of malignant neoplasm of bone; Y92.89 Other specified places as the place of occurrence of the external cause
CPT/HCPCS: 36415; 70450; 71045; 80053; 80164; 80307; 80329; 81001; 85025; 93005; 96374; J1650; J7042; J7060; G0480; J2310

== ENCOUNTER 2018-03-10 19:14 | Inpatient (IN) | payer MEDICARE, MEDICAID ==
[~2018-03-10] VITALS: Ht 172.7 cm; Wt 56.6 kg
[~2018-03-10 19:14] MED LIST changes: +GABA300C10 PO; +QUET100T4 PO; +VALP250C59 PO
[2018-03-10 19:56] LABS: BASOPHILS # (AUTO) 0.01 x10^3/uL (0-0.1); BASOPHILS % (AUTO) 0 % (0-1); EOSINOPHILS # (AUTO) 0.04 x10^3/uL (0-0.4); EOSINOPHILS % (AUTO) 0 % (1-7); LYMPHOCYTES # (AUTO) 1.41 x10^3/uL (1-3.4); LYMPHOCYTES % (AUTO) 17 % (22-44); MD NO; MEAN CORPUSCULAR HEMOGLOBIN 29.2 pg (27.5-34.5); MEAN CORPUSCULAR HGB CONC 33.4 g/dL (33.2-36.2); MEAN CORPUSCULAR VOLUME 87.6 fL (81-97); MEAN PLATELET VOLUME 8.6 fL (7.4-10.4); MONOCYTES # (AUTO) 0.42 x10^3/uL (0.2-0.8); MONOCYTES % (AUTO) 5 % (2-9); NEUTROPHILS # (AUTO) 6.42 x10^3/uL (1.8-6.8); NEUTROPHILS % (AUTO) 77 % (42-75); PLATELET COUNT 207 x10^3/uL (130-400); RED BLOOD COUNT 4.18 x10^6/uL (4.38-5.82); RED CELL DISTRIBUTION WIDTH 20.4 % (9.4-14.8)
[2018-03-10 20:05] LABS: ANION GAP 7 mmol/L (5-15); CALCIUM 7.7 mg/dL (8.5-10.1); CHLORIDE 107 mmol/L (98-107); CREATININE 0.69 mg/dL (0.7-1.3); SALICYLATE LEVEL 3.8 mg/dL (2.8-20.0)
[2018-03-10 20:06] LABS: ACETAMINOPHEN < 2 mcg/mL (10-30)
[2018-03-10 21:14] LABS: MICROSCOPIC AUTO
[2018-03-10 21:18] LABS: CULTURE INDICATED? NO
[2018-03-10 21:23] LABS: AMPHETAMINE SCREEN, URINE Negative (Negative); BARBITURATE SCREEN, URINE Negative (Negative); BENZODIAZEPINE SCREEN, URINE Positive (Negative); CANNABINOID SCREEN, URINE Positive (Negative); COCAINE SCREEN, URINE Negative (Negative); METHADONE SCREEN, URINE Negative (Negative); OPIATE SCREEN, URINE Negative (Negative)
[2018-03-10] MEDS ORDERED: LORazepam 1MG TABLET ONE (23:52)
[2018-03-11] MEDS ORDERED: LORazepam 1MG TABLET PO ONE
[2018-03-11 00:59] VITALS: BP 146/56
[2018-03-11] MEDS ORDERED: HALOPERIDOL 5 MG/ML ONE (01:58)
[2018-03-11] MEDS ORDERED: HALOPERIDOL 5 MG/ML IM PRN (02:00)
[2018-03-11 03:37] VITALS: BP 137/60
[2018-03-11] MEDS ORDERED: LORazepam 1MG TABLET PO PRN (04:00)
[2018-03-11] MEDS ORDERED: TEMPLATE NON-FORMULARY MED. (Butalbital/Aspirin/Caffeine** (Fiorinal 50-325-40 Mg Capsule HOMEMEDPO PRN (04:00)
[2018-03-11] MEDS: LORazepam 2 MG/ML, 1ML IV PRN ×6 (04:22→23:03)
[2018-03-11] MEDS: D5%-0.9% NACL 1,000 ML IV SCH ×3 (04:22→20:26)
[2018-03-11] MEDS: BACLOFEN 10 MG TABLET PO SCH ×5 (06:00→21:12)
[2018-03-11 08:15] VITALS: BP 156/67
[2018-03-11] MEDS: BUPRENORPHINE HCL/NALOXONE 8-2MG FILM SL SCH ×2 (09:00→21:12)
[2018-03-11] MEDS: THIAMINE 100MG TABLET PO SCH (09:14)
[2018-03-11] MEDS: FOLIC ACID 1 MG TABLET PO SCH (09:14)
[2018-03-11] MEDS: MULTIVITAMIN 1 TABLET PO SCH (09:14)
[2018-03-11] MEDS: NICOTINE 21 MG/24 HR PATCH.TD24 TD SCH (09:15)
[2018-03-11 13:03] VITALS: BP 145/69
[2018-03-11 18:22] VITALS: BP 144/65
[2018-03-11] MEDS: DIAZEPAM 10 MG TABLET PO SCH (21:12)
[2018-03-12 01:09] VITALS: BP 158/80
[2018-03-12] MEDS: LORazepam 2 MG/ML, 1ML IV PRN ×7 (01:13→20:19)
[2018-03-12] MEDS: D5%-0.9% NACL 1,000 ML IV SCH ×3 (04:32→20:20)
[2018-03-12] MEDS: BACLOFEN 10 MG TABLET PO SCH ×5 (05:56→22:46)
[2018-03-12 06:51] VITALS: BP 160/74
[2018-03-12 07:21] VITALS: BP 137/65
[2018-03-12] MEDS: MULTIVITAMIN 1 TABLET PO SCH (07:55)
[2018-03-12] MEDS: FOLIC ACID 1 MG TABLET PO SCH (07:55)
[2018-03-12] MEDS: NICOTINE 21 MG/24 HR PATCH.TD24 TD SCH (07:56)
[2018-03-12] MEDS: BUPRENORPHINE HCL/NALOXONE 8-2MG FILM SL SCH ×2 (07:58→22:46)
[2018-03-12] MEDS: THIAMINE 100MG TABLET PO SCH (08:00)
[2018-03-12 12:32] VITALS: BP 158/79
[2018-03-12 19:20] VITALS: BP 138/67
[2018-03-12] MEDS ORDERED: DIAZEPAM 5 MG TABLET ONE (22:20)
[2018-03-12] MEDS: DIAZEPAM 10 MG TABLET PO SCH (22:47)
[2018-03-13 01:16] VITALS: BP 127/63
[2018-03-13] MEDS: D5%-0.9% NACL 1,000 ML IV SCH ×3 (04:03→20:32)
[2018-03-13] MEDS: BACLOFEN 10 MG TABLET PO SCH ×5 (06:06→21:10)
[2018-03-13] MEDS: BUPRENORPHINE HCL/NALOXONE 8-2MG FILM SL SCH ×2 (07:55→21:01)
[2018-03-13] MEDS: FOLIC ACID 1 MG TABLET PO SCH (08:39)
[2018-03-13] MEDS: MULTIVITAMIN 1 TABLET PO SCH (08:39)
[2018-03-13] MEDS: THIAMINE 100MG TABLET PO SCH (08:39)
[2018-03-13] MEDS: NICOTINE 21 MG/24 HR PATCH.TD24 TD SCH (08:40)
[2018-03-13 09:08] VITALS: BP 138/70
[2018-03-13 09:45] VITALS: BP 134/71
[2018-03-13 12:35] VITALS: BP 133/62
[2018-03-13] MEDS: LORazepam 2 MG/ML, 1ML IV PRN (12:40)
[2018-03-13] MEDS: LORazepam 0.5MG TABLET PO PRN (18:26)
[2018-03-13 19:26] VITALS: BP 139/68
[2018-03-13] MEDS ORDERED: DIAZEPAM 5 MG TABLET ONE (20:56)
[2018-03-13] MEDS: DIAZEPAM 10 MG TABLET PO SCH (21:00)
[2018-03-14] MEDS: LORazepam 0.5MG TABLET PO PRN (00:59)
[2018-03-14 01:38] VITALS: BP 144/76
[2018-03-14] MEDS: D5%-0.9% NACL 1,000 ML IV SCH ×3 (04:45→20:37)
[2018-03-14] MEDS: LORazepam 1MG TABLET PO PRN ×4 (05:05→17:42)
[2018-03-14] MEDS: BACLOFEN 10 MG TABLET PO SCH ×5 (06:08→22:35)
[2018-03-14 07:46] VITALS: BP 154/73
[2018-03-14] MEDS: MULTIVITAMIN 1 TABLET PO SCH (09:36)
[2018-03-14] MEDS: FOLIC ACID 1 MG TABLET PO SCH (09:36)
[2018-03-14] MEDS: NICOTINE 21 MG/24 HR PATCH.TD24 TD SCH (09:36)
[2018-03-14] MEDS: THIAMINE 100MG TABLET PO SCH (09:36)
[2018-03-14] MEDS ORDERED: BUPRENORPHINE/NALOXONE 8-2MG SL ONE (10:47)
[2018-03-14] MEDS ORDERED: BUPRENORPHINE HCL/NALOXONE 8-2MG FILM SL ONE (10:56)
[2018-03-14] MEDS: BUPRENORPHINE HCL/NALOXONE 8-2MG FILM SL SCH ×2 (10:58→22:36)
[2018-03-14 13:29] VITALS: BP 137/67
[2018-03-14] MEDS: POLYETHYLENE GLYCOL 17 GM PACKET PO PRN (20:12)
[2018-03-14] MEDS: BUTALB/APAP/CAFFEINE 50MG/325MG/40MG PO PRN (20:12)
[2018-03-14 20:35] VITALS: BP 132/64
[2018-03-14] MEDS ORDERED: DIAZEPAM 5 MG TABLET ONE (22:29)
[2018-03-14] MEDS: DIAZEPAM 10 MG TABLET PO SCH (22:35)
[2018-03-15 01:40] VITALS: BP 126/58
[2018-03-15] MEDS: LORazepam 0.5MG TABLET PO PRN ×4 (03:00→21:29)
[2018-03-15] MEDS: D5%-0.9% NACL 1,000 ML IV SCH (04:21)
[2018-03-15] MEDS: BACLOFEN 10 MG TABLET PO SCH ×5 (06:30→21:29)
[2018-03-15 07:54] VITALS: BP 149/72
[2018-03-15] MEDS: BUPRENORPHINE HCL/NALOXONE 8-2MG FILM SL SCH ×2 (11:18→21:29)
[2018-03-15] MEDS: THIAMINE 100MG TABLET PO SCH ×2 (11:19→12:21)
[2018-03-15] MEDS: NICOTINE 21 MG/24 HR PATCH.TD24 TD SCH (11:19)
[2018-03-15] MEDS: FOLIC ACID 1 MG TABLET PO SCH ×3 (11:20→12:27)
[2018-03-15] MEDS: BUTALB/APAP/CAFFEINE 50MG/325MG/40MG PO PRN ×3 (11:43→21:28)
[2018-03-15] MEDS: MULTIVITAMIN 1 TABLET PO SCH ×3 (12:20→12:29)
[2018-03-15 12:51] VITALS: BP 158/73
[2018-03-15] MEDS: BUTALB/APAP/CAFFEINE 50MG/325MG/40MG PO ONE (16:00)
[2018-03-15 19:48] VITALS: BP 147/68
[2018-03-15] MEDS ORDERED: DIAZEPAM 5 MG TABLET ONE (21:19)
[2018-03-15] MEDS: DIAZEPAM 10 MG TABLET PO SCH (21:29)
[2018-03-16] MEDS: LORazepam 0.5MG TABLET PO PRN ×2 (02:29→16:18)
[2018-03-16] MEDS: BUTALB/APAP/CAFFEINE 50MG/325MG/40MG PO PRN ×4 (02:29→20:57)
[2018-03-16 02:33] VITALS: BP 128/74
[2018-03-16] MEDS: POLYETHYLENE GLYCOL 17 GM PACKET PO PRN ×2 (02:40→17:48)
[2018-03-16] MEDS: BACLOFEN 10 MG TABLET PO SCH ×5 (07:23→20:57)
[2018-03-16 07:34] VITALS: BP 124/67
[2018-03-16] MEDS: BUPRENORPHINE HCL/NALOXONE 8-2MG FILM SL SCH ×2 (09:00→22:58)
[2018-03-16] MEDS: NICOTINE 21 MG/24 HR PATCH.TD24 TD SCH (09:08)
[2018-03-16] MEDS: LORazepam 1MG TABLET PO PRN (12:18)
[2018-03-16 14:50] VITALS: BP 127/66
[2018-03-16 20:26] VITALS: BP 116/64
[2018-03-16] MEDS ORDERED: DIAZEPAM 5 MG TABLET ONE (20:50)
[2018-03-16] MEDS: DIAZEPAM 10 MG TABLET PO SCH (21:00)
[2018-03-17 03:17] VITALS: BP 112/62
[2018-03-17] MEDS: BUTALB/APAP/CAFFEINE 50MG/325MG/40MG PO PRN ×2 (03:23→09:57)
[2018-03-17] MEDS: BACLOFEN 10 MG TABLET PO SCH ×2 (06:39→09:57)
[2018-03-17 08:30] VITALS: BP 110/63
[2018-03-17] MEDS: BUPRENORPHINE HCL/NALOXONE 8-2MG FILM SL SCH (09:00)
[2018-03-17] MEDS: THIAMINE 100MG TABLET PO SCH (09:00)
[2018-03-17] MEDS: FOLIC ACID 1 MG TABLET PO SCH (09:57)
[2018-03-17] MEDS: MULTIVITAMIN 1 TABLET PO SCH (09:57)
[2018-03-17] MEDS: NICOTINE 21 MG/24 HR PATCH.TD24 TD SCH (09:58)
== END 2018-03-17 14:12 | disposition left against medical advice (07) | DRG 894 ==
LOC: ED 20:05 → EDIP 23:54 → OBSVTOIN 23:54 → 3NW 03-11 00:54
PROVIDERS: ADMIT Hospitalist; ATTEND Hospitalist
DX: F10.239 Alcohol dependence with withdrawal, unspecified (principal); R62.7 Adult failure to thrive; E86.0 Dehydration; F10.229 Alcohol dependence with intoxication, unspecified; Z53.21 Procedure and treatment not carried out due to patient leaving prior to being seen by health care provider; I87.2 Venous insufficiency (chronic) (peripheral); M19.90 Unspecified osteoarthritis, unspecified site; Z89.611 Acquired absence of right leg above knee; Z99.3 Dependence on wheelchair; Z85.118 Personal history of other malignant neoplasm of bronchus and lung; Z85.830 Personal history of malignant neoplasm of bone
CPT/HCPCS: 36415; 80048; 80307; 80329; 81001; 82040; 85025; 99285; G0378; J7042; G0480; J1630; J2060